=== PATIENT | male | born 1955 | race Caucasian/White ===

== ENCOUNTER → 2024-02-04 12:00 | Outpatient (REF) | payer MEDICARE, SELFPAY | LOC: DHSLP 12:00 | PROVIDERS: ATTENDING PHYSICIAN Internal Medicine Critical Care Medicine; FAMILY PHYSICIAN Family Medicine | DX: G47.33 Obstructive sleep apnea (adult) (pediatric) (principal) | CPT/HCPCS: 95806 ==

== ENCOUNTER → 2024-06-09 08:16 | Outpatient (REF) | payer MEDICARE, SELFPAY | LOC: HWRAD 08:16 | PROVIDERS: ATTENDING PHYSICIAN Internal Medicine Critical Care Medicine; FAMILY PHYSICIAN Family Medicine | DX: R93.89 Abnormal findings on diagnostic imaging of other specified body structures (principal) | CPT/HCPCS: 71250 ==

== ENCOUNTER → 2025-02-02 08:07 | Outpatient (REF) | payer MEDICARE, SELFPAY | LOC: RAD 08:07 | PROVIDERS: ATTENDING PHYSICIAN Surgery Vascular Surgery; FAMILY PHYSICIAN Family Medicine | DX: I71.02 Dissection of abdominal aorta (principal) | CPT/HCPCS: 76770 ==

== ENCOUNTER → 2025-02-07 08:00 | Outpatient (REF) | payer MEDICARE, SELFPAY | LOC: RCS 08:00 | PROVIDERS: ATTENDING PHYSICIAN Internal Medicine Cardiovascular Disease; FAMILY PHYSICIAN Family Medicine | DX: I10 Essential (primary) hypertension (principal); I77.810 Thoracic aortic ectasia | CPT/HCPCS: 93306 ==

== ENCOUNTER → 2025-02-09 11:12 | Outpatient (REF) | payer MEDICARE, SELFPAY | LOC: RAD 11:12 | PROVIDERS: ATTENDING PHYSICIAN Internal Medicine Cardiovascular Disease; FAMILY PHYSICIAN Family Medicine; REFERRING PHYSICIAN Surgery Vascular Surgery | DX: I77.810 Thoracic aortic ectasia (principal); I71.02 Dissection of abdominal aorta | CPT/HCPCS: 71250 ==